=== PATIENT | male | born 1965 | race Caucasian/White ===

== ENCOUNTER 2020-06-20 08:37 | Outpatient (CLI) | payer MEDICARE, MEDICAID, SELFPAY ==
[2020-06-20 08:54] VITALS: BMI 28.1
--- NOTE | 2020-06-20 08:55 | ECG_ITS ---
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 Interpretive Statements NAME OF STUDY: LEXISCAN SESTAMIBI STRESS TEST INDICATION: [Chest Pain, ] Procedure: At the baseline, the blood pressure was 143/82 mmHg, oxygen saturation 94% with a heart rate of 68 bpm. The electrocardiogram showed normal sinus rhythm, normal axis with occasional PACs. The Lexiscan was infused over the period Of 20 seconds. A total of 0.4 mg of Lexiscan was infused. The stress phase was continued for a total of 5 minutes. Heart rate at the end of stress phase was 71 bpm, oxygen saturation 92% with a blood pressure of 134/79 mmHg. The EKG at peak infusion revealed sinus rhythm with no significant ST T wave changes. Frequent PVCs were noted. Sestamibi was injected 20 seconds after the Lexiscan infusion. The blood pressure at the end of recovery phase was 132/81 mmHg, oxygen saturation 93% with a heart rate of 69 bpm. Conclusions,: 1. Normal EKG response to Lexiscan infusion 2. No Lexiscan induced chest pain or cardiac arrhythmias. 3. Normal blood pressure and heart rate response. 4. Sestamibi/sestamibi perfusion scan pending: See separate report. Electronically Signed On 06-25-2020 11:14:08 CDT by Vance Wong M.D. [id number]
--- NOTE | 2020-06-20 08:55 | NMCV_ITS ---
NM jonathan perf SPECT r/s* [id number] rPem Lucero Age: 55 Gender: M : 1965 Exam Date: 06/20/2020 10:32 Ordering Phys: Vance Wong M.D ([email or web address]) Technologist: AJIT De Luna Exam Location: [facility] Indications: Chest pain STRESS TEST Please see separate stress test report in [facility] for full findings IMAGE PROTOCOL Rest/Stress 1 Lexiscan Day Radiopharmaceutical Dose (mCi) Administration Site Administered by Rest: Tc-99m 10.6 IV AJIT De Luna Sestamibi Stress:Tc-99m 32.6 IV AJIT De Luna Sestamilissett Rest: 20-Jun-2020 60 Discovery 630 Stress: 20-Jun-2020 45 Discovery 630 0.4mg Lexiscan. Images obtained in supine and prone position. SPECT RESULTS Technical Quality: Good Raw Data Analysis: Normal Image Corrections: No attenuation or motion correction applied Summed Stress Score: 3 Summed Rest Score: 6 Summed Difference Score: 1 PERFUSION FINDINGS There is moderate in size, mostly fixed perfusion defect noted in the apical to mid infero-lateral and infero-septal stallworth. There is a fixed defect in the inferior wall. There is another area of fixed defect in the inferior wall. FUNCTIONAL RESULTS (calculated via Gated SPECT) Stress Image LV EF (%): 34 Stress EDV (mL):131 TID: 1.07 Stress ESV (mL):86 FUNCTIONAL FINDINGS: LV systolic function is moderately reduced with EF of 34%. Global hypokinesis is noted IMPRESSIONS 1. Fixed perfusion defects of inferolateral, inferoseptal and inferior wall are noted. 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 2. LV systolic function is moderately reduced with EF of 34%. Vance Wong MD (Electronically Signed) Final Date: 25 June 2020 11:05 S
[2020-06-20] MEDS: regadenoson 0.4 Mg/5 ml Syringe IVP (11:31)
[2020-06-20 11:50] VITALS: BP 132/81; PULSE 74
== END 2020-06-20 08:38 | disposition home or self-care (01) ==
LOC: CDL 08:38
PROVIDERS: PCP Family Medicine; Visit Provider Internal Medicine
DX: R07.9 Chest pain, unspecified (principal)
CPT/HCPCS: 78452; 93017; A9500; J2785

== ENCOUNTER → 2020-07-06 10:49 | Outpatient (BNVA) | payer MEDICARE, MEDICAID, SELFPAY | PROVIDERS: PCP Family Medicine; Visit Provider Internal Medicine | DX: Z11.59 Encounter for screening for other viral diseases (principal) | CPT/HCPCS: 87635 ==

== ENCOUNTER 2020-07-10 09:05 | Observation (INO) | payer MEDICARE, MEDICAID, SELFPAY ==
[2020-07-06 10:14] LABS: Basophils % 0.2 %; Eosinophils # 0.1 10^3/uL (0.0-0.8); Eosinophils % 0.9 %; Hematocrit 45.7 % (42.0-52.0); Lymphocytes # 1.3 10^3/uL (0.8-4.8); Mean Corpuscular HGB Conc 32.8 g/dL (30.0-36.0); Mean Corpuscular Hemoglobin 30.9 pg (28.0-34.0); Mean Corpuscular Volume 94.2 fL (80-94); Mean Platelet Volume 10.2 fL (7.4-10.4); Monocytes # 0.6 10^3/uL (0.2-0.9); Monocytes % 10.2 %; Neutrophils # 3.57 10^3/uL (1.8-7.7); Neutrophils % 65.3 %; Nucleated Red Blood Cells % 0 %; Platelet Count 215 10^3/cmm (130-400); Red Blood Count 4.85 10^6/uL (4.1-5.3); Red Cell Distribution Width 12.7 % (12.1-15.1); White Blood Count 5.5 10^3/uL (4.0-10.0)
[2020-07-06 10:27] LABS: INR 0.84 (0.8-1.2)
[2020-07-06 10:39] LABS: Blood Urea Nitrogen 11 mg/dL (6-20); Calcium 9.3 mg/dL (8.5-10.5); Carbon Dioxide 23 mmol/L (22-29); Chloride 98 mmol/L (98-107); Glomerular Filtration Rate 140.4 mL/min (90-130); Glucose 458 mg/dL (65-115); Osmolality Calculated 291 mOsm/kg (285-295); Sodium 131 mmol/L (136-145)
[2020-07-06 10:42] LABS: Anion Gap 14.4 (5-19); Potassium 4.4 mmol/L (3.5-5.1)
[2020-07-10] VITALS (29 sets, daily range): BP systolic 81–136; BP diastolic 58–82; PULSE 73–84; RESP 16–24; TEMP 36.5; O2SAT 88–96; BMI 28.8
--- NOTE | 2020-07-10 06:00 | XACV_ITS ---
Exam Room: [facility] Ht: 175 cm Wt: 94 kg BSA: 2.16 m2 Gender: Male : 1965 Any Known Allergies: Other Exam Priority: Routine Procedure(s): Procedure Description: Diagnostic procedure Procedure Description: Left Heart Catheterization Procedure Description: Left ventriculography Procedure Description: Coronary Angiography Diagnostic Cath Status: Elective Diagnostic Findings * Left main artery: No significant disease noted. * LAD: * This is a large vessel. It arises from the left main artery. It gives rise to a large diagonal branch. No significant disease is noted in the LAD.. * Left Circumflex: Arises from left main artery. No significant disease is noted. It gives rise to a large OM branch which is free of significant disease. * RCA: This is a dominant vessel which gives rise to a large PDA and PLV branch. In the distal segment there is mild 20% stenosis. * Indication: Abnormal stress test/reduced ejection fraction on nuclear stress test. * No significant disease noted in the Left Main, LAD, Circumflex, or RCA coronary arteries. * Coronary angiography shows right dominance. Conclusions 1. Symptoms likely related to microvascular disease. 2. No significant disease noted in the Left Main, LAD, Circumflex, or RCA coronary arteries. 3. Normal left ventricular systolic function. Ejection fraction of 50%. Recommendations * Uptitrate the dose of isosorbide mononitrate. Ventriculography Ejection Fraction: 50.0 % Pressures Phase:Rest AO : 122 / 101 ( 112 ) @ 2:40:00 AM 138 / 99 ( 117 ) @ 2:46:00 AM 128 / 95 ( 108 ) @ 3:14:00 AM 125 / 23 ( 61 ) @ 3:22:00 AM LV : 108 / -4 / @ 3:21:00 AM 124 / -11 / @ 3:22:00 AM Clinical Evaluation EBL: 5mL-10mL Procedural Details Procedure Consent Obtained. Pre-Procedure Time Out. Identified patient by full name and date of as verbalized by the patient/guarantor. Does the consent match the physician's order: Yes. Accurate & Complete Informed Consent: Yes. Inpatient/Outpatient History & Physical on Chart: Yes. If H&P is completed, is and addenduem needed: No. Relevant Radiology Images available: Yes. The risks, benefits, and alternatives of sedation and/or procedure were discussed by physician. The patient agrees to continue. Procedure started. [facility] Clinical Fraility Score: 2: Well. Staff Therapist Indications: Worsening Angina, Abnormal Stress Test. Chest Pain Symptom Assessment: Typical Angina Symptoms. Cardiovascular Instability: No. Correct patient, site and procedure confirmed by cath team. PERRLA. Strong, equal hand legal recovery specialist bilaterally. Lungs clear x 5 lobes. IV Site on Arrival: 20 gauge in the right anticubital. IV Fluids: 0.9% NaCl at KVO. 0 mL infused prior to laborer plumbing. Pre Procedural Pulses: bilateral dorsalis pedis was 1+. Pre Procedural Pulses: bilateral posterior tibial was 1+. Pre Procedural Pulses: bilateral radial was 1+. Oxygen started at 2liters/min via nasal canula. right groin was prepped with chloroprep then draped in the usual sterile fashion. right radial was prepped with chloroprep then draped in the usual sterile fashion. Physician notified. Baseline sample Acquired. HR: 77 BPM. Patient's family unavailable due to current CoVid restrictions. The spouse, Tosha, will be updated by telephone throughout the procedure. Equipment: 6F - Radial. Physician arrived. Physician scrubbed in. Immediate Pre-Procedure Time Out. The patients spouse, Tosha, was updated. Correct Patient: Yes; Correct Procedure: Yes; Correct Site: Yes; Correct Patient Position: Yes; Correct Supplies: Yes; Dried Flammable Prep: Yes; Blood Products Available: N/A. Lidocaine 1% infiltrated to the right radial. Cardiac Cath Pack. ACIST Manifold Kit Model BT 2000. Heparinized Saline (2 units/mL), 1000 mL bag. Arterial access obtained. A 5 singaporean TIG catheter in over the exchange wire. Multiple views taken of right coronary artery. Catheter redirected to the LCA., unable to cannulate. Catheter removed over the exchange wire. A 5 singaporean JL3.5 catheter in over the exchange wire. Unable to cannulate the LCA with the JL3.5. Catheter removed over the exchange wire. 6 singaporean JL 3 guide catheter was inserted over the exchange wire. Unable to cannulate the LCA with the JL 3 Guide. Catheter removed over the exchange wire. 6 singaporean XB 3 guide catheter was inserted over the exchange wire. The patients spouse, Genera, was updated. Unable to cannulate the LCA with the XB 3 Guide. Catheter removed over the exchange wire. Aborting the radial approach, moving to femoral access. Lidocaine 1% infiltrated to the right groin. Arterial access obtained with micropuncture set. A 5 singaporean JL3.5 catheter in over the exchange wire. Multiple views taken of left coronary artery. Catheter removed over the exchange wire. A 5 singaporean Angled Pig catheter in over the exchange wire. EDP Sample taken: LV 108/-5,8; HR: 84 BPM; SpO2: 95%. LV gram performed in BARRIOS @ 10 mL/second for a total of 30 mL. EDP Sample taken: LV 124/-12,12; HR: 83 BPM; SpO2: 95%. Pullback taken: LV Off; AO Off; Mean: , Peak to Peak: , SEP: ; HR: 80 BPM; SpO2: 95%. Catheter removed over the exchange wire. Physician review of cine films. Physician scrubbed out. A Suture was successful obtaining hemostatsis at the Right Femoral artery insertion site. The patients spouse was updated by Dr. Wong via telephone. TR band placed. Hemostasis obtained. Sheath(s) sutured into position with 2-0 silk and sterile 4x4's and Op-site applied over the site. No oozing or signs and symptoms of hematoma noted. Arterial sheath flushed and connected to tranducer and pressure bag with heparinized saline. Post Procedure: Pulses reassessed and unchanged. PERRLA. Strong, equal hand legal recovery specialist bilaterally. No VTE prophylaxis required. Total IV fluids: 100 mL. Complications: none. Estimated blood loss: 5mL-10mL. A TR Band was successful obtaining hemostatsis at the Right Radial artery insertion site. Post-op diagnosis: Non Obstructive CAD. Procedure completed. Patient transferred by bed to 1st floor. Vital chart was stopped. Medication's Wasted: Lidocaine 1% = 8 mL. Medication's Wasted: Nitro = 49.6 mg. Medication's Wasted: Heparin = 4000 Units. Access Site Site: Right Femoral artery Sheath Size: 6 Fr Hemostasis Method: Suture Hemostasis Success: Successful Site: Right Radial artery Sheath Size: 6 Fr Hemostasis Method: TR Band Hemostasis Success: Successful Procedure Medications Start: 7:29 AM Stop: 7:29 AM Medication: Versed Amount: 1 mg Route: I.V. Start: 7:29 AM Stop: 7:29 AM Medication: Fentanyl Amount: 50 mcg Route: I.V. Start: 7:30 AM Stop: 7:30 AM Medication: Aspirin Amount: 325 mg Route: P.O. Start: 7:46 AM Stop: 7:46 AM Medication: Versed Amount: 1 mg Route: I.V. Start: 7:46 AM Stop: 7:46 AM Medication: Fentanyl Amount: 50 mcg Route: I.V. Start: 7:48 AM Stop: 7:48 AM Medication: Versed Amount: 1 mg Route: I.V. Start: 7:48 AM Stop: 7:48 AM Medication: Fentanyl Amount: 50 mcg Route: I.V. Start: 7:49 AM Stop: 7:49 AM Medication: Heparin Amount: 5000 units Route: I.V. Start: 7:56 AM Stop: 7:56 AM Medication: Versed Amount: 1 mg Route: I.V. Start: 7:56 AM Stop: 7:56 AM Medication: Fentanyl Amount: 50 mcg Route: I.V. Start: 7:58 AM Stop: 7:58 AM Medication: Nitrogylcerin Amount: 150 mcg Route: I.A. Start: 8:04 AM Stop: 8:04 AM Medication: Versed Amount: 1 mg Route: I.V. Start: 8:04 AM Stop: 8:04 AM Medication: Fentanyl Amount: 50 mcg Route: I.V. Start: 8:11 AM Stop: 8:11 AM Medication: Versed Amount: 1 mg Route: I.V. Start: 8:11 AM Stop: 8:11 AM Medication: Fentanyl Amount: 50 mcg Route: I.V. Start: 8:26 AM Stop: 8:26 AM Medication: Versed Amount: 1 mg Route: I.V. Start: 8:26 AM Stop: 8:26 AM Medication: Fentanyl Amount: 25 mcg Route: I.V. I, the attending physician, have reviewed and verified all procedure medications. Yes, all medications given per verbal order History/Risk Factors Hypertension: Yes Dyslipidemia: Yes Peripheral Arterial Disease (PAD): No Myocardial Infarction (ME): No Obesity: Yes Renal Disease: No Tobacco Use: Current/Recent(w/in 1 year) Prior Interventions PCI: No CABG: No Valve Surgery: No Report Signatures Finalized by Vance Wong MD on 07/14/2020 12:58 PM
[2020-07-10] MEDS: diphenhydrAMINE 50 mg Capsule PO (06:42)
--- NOTE | 2020-07-10 07:20 | PM.HP ---
Providers/Chief Complaint Primary Care Provider: Olivia Garland DO Chief Complaint: left and rigth heart cath History of Present Illness Prem Lucero is a 55 year old male with past medical history of hypertension, diabetes, coronary artery disease status post PCI in 2005 per patient's history presented to the office on 06/06/2020 plaints of chest discomfort on exertion that was increasing in intensity and associated with fatigue and lethargy. We performed a nuclear stress test that showed mostly fixed defect in the inferior, inferolateral and inferoseptal wall, however there was new reduction in EF to 34% on the nuclear stress test. Given his drop in EF and persistent symptoms of chest discomfort that are increasing in frequency we discussed coronary angiogram with the patient who agreed to undergoing it. Review of Systems General: Reports: 10 or more systems reviewed and unremarkable except in HPI and below Narrative: CONSTITUTIONAL: No fever chills weight loss or gain or night sweats. [] HEENT: Normocephalic, atraumatic.[] RESPIRATORY: No cough, sputum, hemoptysis or wheezing.[] CARDIOVASCULAR: Frequent chest pain, no PND, orthopnea, lower extremity edema, presyncope or syncope. [] GI: no nausea vomiting diarrhea. [] GLASS UNLOADING EQUIPMENT TENDER: No numbness, tingling, weakness or loss of function in any part of the body. [] MUSCULOSKELETAL: No knee or joint pain or rashes. [] Medications/Allergies Home Medications Medication Instructions Recorded Confirmed Last Taken Type dulaglutide 0.75 mg/0.5 mL See Rx Instructions .ROUTE .COMPLEX 03/20/20 07/10/20 Unknown History subcutaneous pen injector ibuprofen 800 mg tablet 800 mg PO Q8H PRN 03/20/20 07/10/20 Unknown History nitroglycerin 0.4 mg sublingual 0.4 mg SUBLINGUAL Q5M PRN 03/20/20 07/10/20 Unknown History tablet oxycodone 10 mg tablet 10 mg PO TID PRN 03/20/20 07/10/20 Unknown History ranitidine HCl 150 mg tablet 150 mg PO BID tab 03/20/20 07/10/20 07/09/20 17:00 History simvastatin 20 mg tablet 20 mg PO DAILY 03/20/20 07/10/20 07/09/20 12:00 History albuterol sulfate [Proventil HFA] 1 inh INHALATION QID PRN 07/10/20 07/10/20 Unknown History fluoxetine 20 mg PO DAILY 07/10/20 07/10/20 07/09/20 12:00 History glipizide 10 mg PO BID 07/10/20 07/10/20 07/09/20 12:00 History isosorbide mononitrate 15 mg PO DAILY 07/10/20 07/10/20 07/09/20 12:00 History methocarbamol 750 mg PO TID 07/10/20 07/10/20 07/09/20 17:00 History sitagliptin-metformin [Janumet] 1 tab PO BID 07/10/20 07/10/20 07/09/20 12:00 History Allergies Allergy/AdvReac Type Severity Reaction Status Date / Time naproxen [From Aleve] Allergy Severe ALGY-Hives Verified 07/10/20 06:43 PFSH Acute PFSH: Medical History ASHD (arteriosclerotic heart disease) HTN (hypertension) Palpitation Family History Other Diabetes Social History Smoking and tobacco status: current every day smoker cigarettes Alcohol intake: never Vitals/I&O/Wt Last Vital Signs Temp 97.7 F 07/10/20 06:39 Pulse 78 07/10/20 06:39 Resp 16 07/10/20 06:39 BP 136/82 07/10/20 06:39 Pulse Ox 96 07/10/20 06:39 Weight last 48 hrs Weight 207 lb Physical Exam Narrative: EXAM NARRATIVE: GENERAL: Patient is alert, awake and oriented x3. [] NECK: No jugular vein distension. [] HEENT: No cyanosis. No icterus. No pallor. [] HEART: Regular S1 and S2. No murmur, rub or gallop. [] LUNGS: Clear to auscultate bilaterally. [] ABDOMEN: Soft, nontender and nondistended. Positive bowel sounds. No guarding, rebound or tenderness. [] CENTRAL NERVOUS SYSTEM: Grossly nonfocal. [] EXTREMITIES: Lower extremities with no edema bilaterally. Pulses palpable in the lower extremities, both dorsalis pedis and posterior tibial. [] Data : 07/06/20 09:56 07/06/20 09:56 A&P Assessment and plan (1) Abnormal stress test: Status: Acute (2) Angina of effort: Status: Acute (3) ASHD (arteriosclerotic heart disease): Status: Acute (4) HTN (hypertension): Status: Acute Patient has been getting frequent chest pain episodes on exertion. He underwent a nuclear stress test that showed mostly fixed defect in the inferior, inferior lateral and inferoseptal wall region however there is a new drop in EF. Given his symptoms of chest pain associated with abnormal stress test, we will proceed with coronary angiogram. I had a detailed discussion about risk and benefits associated with the procedure. I described the risks including bleeding, infection, kidney function worsening, abnormal heart rhythm, heart attack, stroke or . Patient understands it and wants to proceed with the procedure. Attestations Medical Necessity Statement*: Care not expected to cross 2 midnights. Patient is here for diagnostic angiogram with possible percutaneous coronary intervention( which is performed patient will stay overnight in the hospital.) Coding Level of Care Code Acute Curtain Stretcher for Soniya Barkley Diagnoses Abnormal stress test R94.39 Angina of effort I20.8 ASHD (arteriosclerotic heart disease) I25.10 HTN (hypertension) I10
[2020-07-10] MEDS: atorvastatin 40 mg Tablet 20 MG PO (10:13)
[2020-07-10] MEDS: isosorbide mononitrate ER 30 mg Tablet 15 MG PO (10:14)
[2020-07-10] MEDS: fluoxetine 20 mg Capsule PO (10:14)
[2020-07-10] MEDS: methocarbamol 750 mg Tablet PO ×2 (10:14→14:18)
[2020-07-10 11:33] LABS: Glucose Point of Care 311 mg/dL (70-110)
[2020-07-10 11:43] LABS: Partial Thromboplastin Time 28.7 SECONDS (23.9-36.7)
[2020-07-10 17:09] LABS: Glucose Point of Care 216 mg/dL (70-110)
--- NOTE | 2020-07-11 12:01 | PC.RESP ---
SMOKING CESSATION INFORMATION SENT TO PATIENT.
== END 2020-07-10 19:03 | disposition home or self-care (01) ==
LOC: CSU 09:05
PROVIDERS: Admitting Provider Internal Medicine; PCP Family Medicine; Visit Provider Internal Medicine
DX: I25.110 Atherosclerotic heart disease of native coronary artery with unstable angina pectoris (principal); I10 Essential (primary) hypertension; E78.5 Hyperlipidemia, unspecified; E66.9 Obesity, unspecified; Z68.28 Body mass index [BMI] 28.0-28.9, adult; F17.210 Nicotine dependence, cigarettes, uncomplicated
CPT/HCPCS: 12345; 36415; 36416; 80048; 82962; 85025; 85610; 85730; 93452; 96372; C1769; C1887; C1894; G0378; J1644; J1815; J2250; J3010; J3490; J7030; Q0163; Q9967

== ENCOUNTER → 2020-07-17 10:52 | Outpatient (BNVA) | payer MEDICARE, MEDICAID, SELFPAY | PROVIDERS: PCP Family Medicine; Visit Provider Nurse Practitioner Family | DX: I25.10 Atherosclerotic heart disease of native coronary artery without angina pectoris (principal) | CPT/HCPCS: 80048 ==

== ENCOUNTER 2021-04-02 22:51 | Emergency (ER) | payer MEDICARE, MEDICAID, SELFPAY ==
[2021-04-02 22:59] VITALS: BP 130/82; PULSE 85; RESP 17; TEMP 36.5; O2SAT 96; BMI 28.8
--- NOTE | 2021-04-02 23:22 | W.ED.GENADLT ---
HPI - General Adult General: Chief complaint: General Medical Stated complaint: bleeding from rectum, diabetic Time Seen by Provider: 04/02/21 23:04 Source: patient Mode of arrival: ambulatory Limitations: no limitations History of Present Illness: HPI narrative: 55-year-old male states he noticed a bump on his rectum yesterday. He states he had bleeding from that. States bright red blood mainly smeared on the stool. States it is also painful to touch and when he sits down. He denies any vomiting or diarrhea. Denies any constipation. Denies any worsening improving factors. Associated symptoms: Deny chest pain, dyspnea, headache(s) or rash Review of Systems Const: Denies: fever(s), chills, body aches or change in appetite Eyes: Denies: blurry vision or eye discomfort ENMT: Denies: throat pain or dental pain Card: Denies: chest pain Resp: Denies: dyspnea GI: Reports: hematochezia : Denies: dysuria Musc: Denies: neck pain or back pain Skin/Breast: Denies: rash Neuro: Denies: headache(s) Psych: Denies: depression Bruce/Lymph: Denies: easy bruising All/Imm: Denies: urticaria PFSH ED PFSH: Medical History ASHD (arteriosclerotic heart disease) Chronic back pain Claudication Diabetes 1.5, managed as type 2 GERD (gastroesophageal reflux disease) HTN (hypertension) Hyperlipidemia STEVEN (obstructive sleep apnea) Palpitation Family History Other Diabetes Social History Smoking and tobacco status: current every day smoker cigarettes Alcohol intake: never Physical Exam Const: COMMON NORMALS: no acute distress, patient oriented x3 and healthy appearing HENMT: COMMON NORMALS: normocephalic and atraumatic HEAD & SCALP: normocephalic and atraumatic Eye: COMMON NORMALS: Equal, round and reactive pupils present and EOMs intact bilaterally PUPIL: Yes Equal, round and reactive pupils present Neck/C-Spine: COMMON NORMALS: full ROM and supple Chest: COMMONS NORMALS: normal inspection of the chest and normal palpation of entire chest wall Resp: COMMON NORMALS: normal respiratory effort, No retractions, No use of accessory muscles and clear to auscultation bilaterally AUSCULTATION: clear to auscultation bilaterally Cardio: COMMON NORMALS: regular rate, regular rhythm and No murmurs present (Cardio) RATE: regular rate RHYTHM: regular rhythm GI: COMMON NORMALS: Normal to inspection, nondistended, normoactive bowel sounds present, Soft to palpation, non-tender and no masses PALPATION: Yes Soft to palpation OTHER: Hemorrhoid noted externally nonthrombosed Extremity: COMMON NORMALS: normal to inspection and full ROM Neuro: COMMON NORMALS: patient oriented x3, moves all extremities and no focal motor deficits Psych: COMMON NORMALS: mental status grossly normal, Normal thought process present and cooperative THOUGHT PROCESS: Normal thought process present Skin: COMMON NORMALS: no rashes or lesions noted and no wounds GENERAL SKIN EXAM: no rashes or lesions noted Course Vital Signs: Vital signs: Vital Signs Temperature 97.7 F 04/02/21 22:59 Pulse Rate 85 04/02/21 22:59 Respiratory Rate 17 04/02/21 22:59 Blood Pressure 130/82 04/02/21 22:59 Pulse Oximetry 96 04/02/21 22:59 MDM - General Adult MDM Narrative: Medical decision making narrative: Patient presents with an external hemorrhoid with bleeding. Patient placed on stool softeners along with Proctofoam to follow-up with Dr. Saleem. He is to return if worsening. He understands agrees to plan. Discharge Plan Discharge Patient Disposition: Home Clinical Impression: Acute hemorrhoid Condition: Stable Prescriptions: New Colace 100 mg capsule 100 mg PO BID Qty: 20 RF: 0 Proctofoam 1 % foam 1 applic DC BID Qty: 15 RF: 0 No Action simvastatin 20 mg tablet 20 mg PO DAILY RF: 0 oxycodone 10 mg tablet 10 mg PO TID PRN (Reason: Pain) RF: 0 Trulicity 0.75 mg/0.5 mL pen injector See Rx Instructions .ROUTE .COMPLEX RF: 0 ibuprofen [IBU] 800 mg tablet 800 mg PO Q8H PRN (Reason: Shortness Of Breath) RF: 0 nitroglycerin [Nitrostat] 0.4 mg tablet, sublingual 0.4 mg SUBLINGUAL Q5M PRN (Reason: Chest Pain) RF: 0 ranitidine HCl 150 mg tablet 150 mg PO BID RF: 0 furosemide [Lasix] 40 mg tablet 40 mg PO DAILY Qty: 90 RF: 3 ranolazine 500 mg tablet extended release 12 hr 500 mg PO BID Qty: 180 RF: 3 glipizide 10 mg Tablet 10 mg PO BID RF: 0 methocarbamol 750 mg Tablet 750 mg PO TID RF: 0 albuterol sulfate [Proventil HFA] 90 mcg/actuation Hfa Aerosol Inhaler 1 inh INHALATION QID PRN (Reason: Shortness Of Breath) RF: 0 fluoxetine 20 mg Capsule 20 mg PO DAILY RF: 0 Janumet 50-1,000 mg Tablet 1 tab PO BID RF: 0 Discharge Orders: Discharge ED (Routine); Ordered 04/02/21 Ordered By: Merari Ignacio Referrals: Mikal Saleem MD [Physician] - 1-3 days Olivia Garland DO [Primary Care Provider] - Discharge Diet: Advance as tolerated Discharge Activity: Resume usual activity Patient Instructions: Hemorrhoids (ED) Coding Level of Care Code ED Patient Coordinator Front Desk for Soniya Barkley
[2021-04-02 23:29] VITALS: BP 130/92; PULSE 85; RESP 18; O2SAT 99
--- NOTE | 2021-04-03 15:23 | PC.SOCIAL ---
Called Dr Saleem office to arrange appt for referral by Dr Ignacio for hemorrhoids. Earliest appointment due to vacation is April at check in time of 8:30am for 9am appointment. Called patient and spoke to and they want to keep this appointment and willing to wait this timeframe to see Dr Saleem. Provided information and faxed records to Dr Saleem office at number provided [phone].
--- NOTE | 2021-05-09 07:59 | DCPLANNER ---
Patient had a follow up appointment with Dr. Saleem - patient did attend.
== END 2021-04-02 23:30 | disposition home or self-care (01) ==
PROVIDERS: Emergency Provider Emergency Medicine; PCP Family Medicine
DX: K64.9 Unspecified hemorrhoids (principal); E13.9 Other specified diabetes mellitus without complications; I10 Essential (primary) hypertension; E78.5 Hyperlipidemia, unspecified; F17.210 Nicotine dependence, cigarettes, uncomplicated
CPT/HCPCS: 99282

== ENCOUNTER → 2021-04-30 11:21 | Outpatient (BNVA) | payer MEDICARE, MEDICAID, SELFPAY | PROVIDERS: PCP Family Medicine; Visit Provider Nurse Practitioner Family | DX: Z20.822 Contact with and (suspected) exposure to COVID-19 (principal); J06.9 Acute upper respiratory infection, unspecified | CPT/HCPCS: 87635 ==

== ENCOUNTER → 2022-03-11 14:03 | Outpatient (BNVA) | payer MEDICARE, MEDICAID, SELFPAY | PROVIDERS: PCP Family Medicine; Visit Provider Internal Medicine | DX: I20.8 Other forms of angina pectoris (principal); R06.02 Shortness of breath; R53.83 Other fatigue; I10 Essential (primary) hypertension; F17.210 Nicotine dependence, cigarettes, uncomplicated; E13.9 Other specified diabetes mellitus without complications; G47.33 Obstructive sleep apnea (adult) (pediatric); E78.5 Hyperlipidemia, unspecified; Z79.84 Long term (current) use of oral hypoglycemic drugs | CPT/HCPCS: 99213 ==

== ENCOUNTER → 2022-06-10 08:33 | Outpatient (BNVA) | payer MEDICARE, MEDICAID, SELFPAY | PROVIDERS: PCP Family Medicine; Referring Provider Family Medicine; Visit Provider Orthopaedic Surgery | DX: M77.8 Other enthesopathies, not elsewhere classified (principal) | CPT/HCPCS: 73110; 99203 ==

== ENCOUNTER 2022-06-10 10:31 | Outpatient (CLI) | payer MEDICARE, MEDICAID, SELFPAY | END 2022-06-10 10:32 | disposition home or self-care (01) | LOC: SPT 10:31 | PROVIDERS: PCP Family Medicine; Visit Provider Orthopaedic Surgery | DX: Z46.89 Encounter for fitting and adjustment of other specified devices (principal); M77.8 Other enthesopathies, not elsewhere classified; M25.532 Pain in left wrist | CPT/HCPCS: 97760; L3809 ==